=== PATIENT | female | born 1975 ===

== ENCOUNTER → 2017-03-19 | Outpatient (REF) | LOC: WSOH 10:02 → WSPT 11:00 | DX: Z02.1 Encounter for pre-employment examination (principal) ==

== ENCOUNTER → 2017-03-27 | Outpatient (REF) | LOC: WSOH 13:15 | DX: Z02.89 Encounter for other administrative examinations (principal) ==

== ENCOUNTER → 2017-04-06 | Outpatient (REF) | LOC: WSOH 13:49 | DX: Z02.89 Encounter for other administrative examinations (principal) ==

== ENCOUNTER → 2017-05-10 | Outpatient (REF) | LOC: WSOH 17:15 | DX: Z02.89 Encounter for other administrative examinations (principal) ==